=== PATIENT | male | born 1995 | race African-American/Black ===

== ENCOUNTER 2018-05-11 22:29 | Emergency (ER) | payer OTHER ==
[~2018-05-11] VITALS: Ht 188 cm; Wt 84.1 kg
[2018-05-11 22:37] VITALS: BP 132/75; TEMP 98
[2018-05-11 23:47] VITALS: PULSE 74
== END 2018-05-11 23:47 | disposition home or self-care (01) ==
LOC: COL.ER 22:29
DX: Z20.2 Contact with and (suspected) exposure to infections with a predominantly sexual mode of transmission (principal)
CPT/HCPCS: J0696